=== PATIENT | male | born 1935 | race African-American/Black ===

== ENCOUNTER 2018-01-01 13:26 | Emergency (ER) | payer MEDICARE, OTHER ==
[~2018-01-01] VITALS: Ht 175.3 cm; Wt 85.0 kg
[~2018-01-01 13:26] MED LIST: ASPI-1160 PO; HYDR25TA PO; ROSU40TA PO
[2018-01-01] MEDS ORDERED: ACETAMINOPHEN 325MG TABLET PO ONE (14:45)
[2018-01-01 16:20] LABS: BASOPHILS % 0.9 % (0.0-2.0); EOSINOPHILS % 2.3 % (0.0-5.0); HEMATOCRIT. 40.7 % (42.0-52.0); HEMOGLOBIN. 12.9 g/dL (14.0-18.0); LYMPHOCYTES % 12.4 % (20.0-50.0); MEAN CORPUSCULAR HEMOGLOBIN 28.1 pg (28.0-32.0); MEAN CORPUSCULAR VOLUME 88.5 fL (80.0-94.0); MONOCYTES % 12.9 % (2.0-8.0); NEUTROPHILS % 71.5 % (40.0-76.0); PLATELET 218 x1000/uL (130-400); RED CELL DISTRIBUTION WIDTH 14.8 % (11.6-14.6)
[2018-01-01 16:24] LABS: CHLORIDE 103 mEq/L (98-107)
[2018-01-01 17:51] VITALS: BP 132/68
== END 2018-01-01 17:52 | disposition home or self-care (01) ==
LOC: ER 13:26
DX: L03.115 Cellulitis of right lower limb (principal); I10 Essential (primary) hypertension; J45.909 Unspecified asthma, uncomplicated; Z79.82 Long term (current) use of aspirin
CPT/HCPCS: 36415; 73610; 73630; 84550; 93971; 99284

== ENCOUNTER 2019-02-01 21:20 | Inpatient (IN) | payer MEDICARE, OTHER ==
[~2019-02-01] VITALS: Ht 182.9 cm; Wt 98.0 kg
[2019-02-02] MEDS ORDERED: ASPIRIN 81MG TABLET PO ONE (02:00)
[2019-02-02 02:38] LABS: HEMATOCRIT. 40.5 % (42.0-52.0); HEMOGLOBIN. 13.5 g/dL (14.0-18.0); MEAN CORPUSCULAR HEMOGLOBIN 30.1 pg (28.0-32.0); MEAN CORPUSCULAR VOLUME 90.8 fL (80.0-94.0); MEAN PLATELET VOLUME 9.2 fl (7.4-10.4); PLATELET 169 x1000/uL (130-400); RED BLOOD CELL COUNT 4.46 mill/uL (4.7-6.1); RED CELL DISTRIBUTION WIDTH 15.5 % (11.6-14.6)
[2019-02-02 02:43] LABS: CHLORIDE 109 mEq/L (98-107)
[2019-02-02 04:15] LABS: ATYPICAL LYMPHOCYTES 2; PLATELET ESTIMATE NORMAL
[2019-02-02] MEDS ORDERED: NA PHOS,M-B/NA PHOS,DI-BA ENEMA 118ML PR PRN (09:45)
[2019-02-02] MEDS ORDERED: GUAIFENESIN 200MG/10ML SUGAR FREE UDC PO PRN (09:45)
[2019-02-02] MEDS ORDERED: ONDANSETRON HCL 4MG/2ML INJ IV PRN (09:45)
[2019-02-02] MEDS ORDERED: NITROGLYCERIN 0.4MG TABLET SL SL PRN (09:45)
[2019-02-02] MEDS ORDERED: DOCUSATE SODIUM 100MG CAPSULE PO PRN (09:45)
[2019-02-02] MEDS ORDERED: AMLODIPINE 10MG TABLET PO SCH (09:45)
[2019-02-02] MEDS ORDERED: CLONIDINE 0.1MG TABLET PO PRN (09:45)
[2019-02-02] MEDS ORDERED: LORAZEPAM 0.5MG TABLET PO PRN (09:45)
[2019-02-02] MEDS ORDERED: MAGNESIUM/ALUMINUM HYDROXIDE/SIMETHICONE 30ML UDC PO PRN (09:45)
[2019-02-02] MEDS ORDERED: ACETAMINOPHEN 325MG TABLET PO PRN (09:45)
[2019-02-02] MEDS ORDERED: IPRATROPIUM/ALBUTEROL 0.5-3(2.5)MG/3ML NEB NEB PRN (09:45)
[2019-02-02] MEDS ORDERED: TRAMADOL 50MG TABLET PO PRN (09:45)
[2019-02-02 11:00] VITALS: BP 178/80
[2019-02-02] MEDS ORDERED: REGADENOSON 0.4 MG/5 ML IV NR (11:30)
[2019-02-02] MEDS: ENOXAPARIN 40MG/0.4ML SYR SUBCUT SCH (14:23)
[2019-02-02 15:17] LABS: CREATINE KINASE 57 IU/L (39-308)
[2019-02-02 15:18] LABS: CREATINE KINASE MB FRACTION 1.1 ng/mL (0.5-3.6)
[2019-02-02 20:00] VITALS: BP 149/91
[2019-02-02] MEDS: FAMOTIDINE 20MG TABLET PO SCH (20:59)
[2019-02-02] MEDS: AMLODIPINE 5MG TABLET PO SCH (20:59)
[2019-02-02] MEDS: METOPROLOL TARTRATE 25MG TABLET PO SCH (20:59)
[2019-02-02] MEDS ORDERED: ZOLPIDEM TARTRATE 5MG TABLET PO PRN (21:00)
[2019-02-03] VITALS: BP 137/57
[2019-02-03 04:00] VITALS: BP 141/70
[2019-02-03 06:27] LABS: BASOPHILS % 0.9 % (0.0-2.0); EOSINOPHILS % 2.1 % (0.0-5.0); HEMOGLOBIN. 12.8 g/dL (14.0-18.0); LYMPHOCYTES % 17.9 % (20.0-50.0); MEAN CORPUSCULAR HEMOGLOBIN 29.5 pg (28.0-32.0); MEAN CORPUSCULAR VOLUME 92.2 fL (80.0-94.0); MEAN PLATELET VOLUME 10.4 fl (7.4-10.4); NEUTROPHILS % 67.1 % (40.0-76.0); PLATELET 140 x1000/uL (130-400); RED BLOOD CELL COUNT 4.34 mill/uL (4.7-6.1); RED CELL DISTRIBUTION WIDTH 15.7 % (11.6-14.6)
[2019-02-03 06:32] LABS: CHLORIDE 108 mEq/L (98-107)
[2019-02-03 06:40] LABS: LDL CHOLESTEROL 83 mg/dL (5-100)
[2019-02-03 06:41] LABS: HDL CHOLESTEROL 48 mg/dL (40-59)
[2019-02-03 08:00] VITALS: BP 149/70
[2019-02-03] MEDS ORDERED: ASPIRIN 325MG EC TABLET PO SCH (09:00)
[2019-02-03] MEDS: ENOXAPARIN 40MG/0.4ML SYR SUBCUT SCH (09:36)
[2019-02-03 12:00] VITALS: BP 182/64
[2019-02-03] MEDS ORDERED: REGADENOSON 0.4 MG/5 ML IV ONE (13:12)
[2019-02-03] MEDS: AMLODIPINE 5MG TABLET PO SCH ×2 (15:17→20:53)
[2019-02-03] MEDS: ASPIRIN 81MG EC TABLET PO SCH (15:17)
[2019-02-03] MEDS: FAMOTIDINE 20MG TABLET PO SCH ×2 (15:17→20:52)
[2019-02-03] MEDS: METOPROLOL TARTRATE 25MG TABLET PO SCH ×2 (15:17→20:53)
[2019-02-03 16:00] VITALS: BP 160/67
[2019-02-03] MEDS: CLONIDINE 0.2MG TABLET PO SCH ×3 (18:12→21:51)
[2019-02-03 20:00] VITALS: BP 135/55
[2019-02-03] MEDS ORDERED: ATORVASTATIN CALCIUM 20MG TABLET PO SCH (21:00)
[2019-02-04] VITALS: BP 114/52
[2019-02-04 04:00] VITALS: BP 145/71
[2019-02-04] MEDS: CLONIDINE 0.2MG TABLET PO SCH ×2 (06:00→12:43)
[2019-02-04 08:00] VITALS: BP 138/66
[2019-02-04] MEDS: AMLODIPINE 5MG TABLET PO SCH (09:23)
[2019-02-04] MEDS: ASPIRIN 81MG EC TABLET PO SCH (09:23)
[2019-02-04] MEDS: FAMOTIDINE 20MG TABLET PO SCH (09:23)
[2019-02-04] MEDS: ENOXAPARIN 40MG/0.4ML SYR SUBCUT SCH ×2 (09:25→09:33)
[2019-02-04] MEDS: METOPROLOL TARTRATE 25MG TABLET PO SCH (09:25)
[2019-02-04] MEDS ORDERED: MAGNESIUM OXIDE 400MG TABLET PO NR ×2 (10:00→10:15)
[2019-02-04 12:00] VITALS: BP 162/58
[2019-02-04 12:35] VITALS: BP 135/65
== END 2019-02-04 14:35 | disposition home or self-care (01) | DRG 206 ==
LOC: ER 21:20 → 7WST 02-02 05:14 → EDBEDREQTM 02-02 05:16 → EDBEDREQ 02-02 05:16 → ENRESERV 02-02 08:13
PROVIDERS: ADMIT Internal Medicine; ATTEND Internal Medicine
DX: M94.0 Chondrocostal junction syndrome [Tietze] (principal); E44.1 Mild protein-calorie malnutrition; E11.9 Type 2 diabetes mellitus without complications; E78.5 Hyperlipidemia, unspecified; E83.51 Hypocalcemia; F17.210 Nicotine dependence, cigarettes, uncomplicated; I10 Essential (primary) hypertension; I25.10 Atherosclerotic heart disease of native coronary artery without angina pectoris; J44.9 Chronic obstructive pulmonary disease, unspecified; N40.0 Benign prostatic hyperplasia without lower urinary tract symptoms; D64.9 Anemia, unspecified; E78.00 Pure hypercholesterolemia, unspecified; F12.10 Cannabis abuse, uncomplicated; Z68.29 Body mass index [BMI] 29.0-29.9, adult
CPT/HCPCS: 36415; 71045; 78452; 80053; 80061; 82550; 82553; 83036; 83735; 83880; 84100; 84484; 85025; 93005; 93017; 93306; 93970; 99285; A9500; J1650; J2785

== ENCOUNTER 2021-11-12 12:45 | Inpatient (IN) | payer MEDICARE, OTHER ==
[~2021-11-12] VITALS: Ht 185.4 cm; Wt 85.5 kg
[~2021-11-12 12:45] MED LIST changes: -ASPI-1160 PO; +NITR-87 MT; +OXYB5TAB16 PO
[2021-11-12] MEDS ORDERED: NITROGLYCERIN 0.4MG TABLET SL SL PRN (13:30)
[2021-11-12 13:49] LABS: EOSINOPHILS % 3.4 % (0.0-5.0); HEMATOCRIT. 38.6 % (42.0-52.0); HEMOGLOBIN. 12.5 g/dL (14.0-18.0); MEAN CORPUSCULAR HEMOGLOBIN 28.9 pg (28.0-32.0); MEAN PLATELET VOLUME 9.1 fl (7.4-10.4); MONOCYTES % 9.2 % (2.0-8.0); NEUTROPHILS % 66.4 % (40.0-76.0); PLATELET 198 x1000/uL (130-400); RED BLOOD CELL COUNT 4.34 mill/uL (4.7-6.1); RED CELL DISTRIBUTION WIDTH 16.4 % (11.6-14.6)
[2021-11-12 14:10] LABS: CHLORIDE 104 mEq/L (98-107)
[2021-11-12 15:02] LABS: INR 1.1; PROTHROMBIN TIME 11.4 sec (9.6-11.0)
[2021-11-12] MEDS ORDERED: ACETAMINOPHEN 325MG TABLET PO PRN ×2 (18:45)
[2021-11-12] MEDS ORDERED: GUAIFENESIN 200MG/10ML SUGAR FREE UDC PO PRN (18:45)
[2021-11-12] MEDS ORDERED: DOCUSATE SODIUM 100MG CAPSULE PO PRN (18:45)
[2021-11-12] MEDS ORDERED: MAGNESIUM/ALUMINUM HYDROXIDE/SIMETHICONE 30ML UDC PO PRN (18:45)
[2021-11-12] MEDS ORDERED: HYDROCODONE/ACETAMINOPHEN 5/325MG TABLET PO PRN (18:45)
[2021-11-12] MEDS ORDERED: ONDANSETRON HCL 4MG/2ML INJ IV PRN (18:45)
[2021-11-12] MEDS ORDERED: CLONIDINE 0.1MG TABLET PO PRN (18:45)
[2021-11-12] MEDS ORDERED: NALOXONE HCL 0.4MG/ML VIAL IV PRN (19:15)
[2021-11-12] MEDS ORDERED: IPRATROPIUM/ALBUTEROL 0.5-3(2.5)MG/3ML NEB HHN PRN (19:15)
[2021-11-12] MEDS: FAMOTIDINE 20MG TABLET PO SCH (21:47)
[2021-11-13] VITALS: BP 152/74
[2021-11-13 06:54] LABS: BASOPHILS % 0.7 % (0.0-2.0); EOSINOPHILS % 3.7 % (0.0-5.0); HEMATOCRIT. 39.1 % (42.0-52.0); HEMOGLOBIN. 12.8 g/dL (14.0-18.0); MEAN CORPUSCULAR HEMOGLOBIN 28.7 pg (28.0-32.0); MEAN CORPUSCULAR VOLUME 88.1 fL (80.0-94.0); MEAN PLATELET VOLUME 9.5 fl (7.4-10.4); MONOCYTES % 11.3 % (2.0-8.0); NEUTROPHILS % 62.3 % (40.0-76.0); PLATELET 209 x1000/uL (130-400); RED BLOOD CELL COUNT 4.44 mill/uL (4.7-6.1); RED CELL DISTRIBUTION WIDTH 16.2 % (11.6-14.6)
[2021-11-13 08:00] VITALS: BP 126/69
[2021-11-13] MEDS: ENOXAPARIN 30MG/0.3ML SYR SUBCUT SCH (09:42)
[2021-11-13] MEDS: FAMOTIDINE 20MG TABLET PO SCH ×2 (09:42→21:00)
[2021-11-13] MEDS: ASPIRIN 81MG EC TABLET PO SCH (09:42)
[2021-11-13 09:57] LABS: CHLORIDE 108 mEq/L (98-107)
[2021-11-13 10:04] LABS: HDL CHOLESTEROL 47 mg/dL (40-59); LDL CHOLESTEROL 72 mg/dL (5-100)
[2021-11-13 12:00] VITALS: BP 142/72
[2021-11-13 16:00] VITALS: BP 134/60
[2021-11-13 21:01] VITALS: BP 147/57
[2021-11-14 00:45] VITALS: BP 117/48
[2021-11-14 04:00] VITALS: BP 128/47
[2021-11-14 06:22] LABS: CHLORIDE 107 mEq/L (98-107); HEMATOCRIT 37.8 % (42.0-52.0); HEMOGLOBIN 12.4 g/dL (14.0-18.0); MEAN CORPUSCULAR HEMOGLOBIN 28.9 pg (28.0-32.0); MEAN CORPUSCULAR VOLUME 88.3 fL (80.0-94.0); PLATELET 205 x1000/uL (130-400); RED BLOOD CELL COUNT 4.28 mill/uL (4.7-6.1); RED CELL DISTRIBUTION WIDTH 16.2 % (11.6-14.6)
[2021-11-14] MEDS ORDERED: REGADENOSON 0.4 MG/5 ML IV NR (07:30)
[2021-11-14 08:00] VITALS: BP 130/71
[2021-11-14 12:00] VITALS: BP 125/63
[2021-11-14] MEDS ORDERED: FERROUS SULFATE 325MG TABLET PO SCH (12:15)
[2021-11-14] MEDS: FAMOTIDINE 20MG TABLET PO SCH (12:42)
[2021-11-14] MEDS: ASPIRIN 81MG EC TABLET PO SCH (12:42)
[2021-11-14] MEDS: ENOXAPARIN 30MG/0.3ML SYR SUBCUT SCH (12:43)
[2021-11-14] MEDS ORDERED: ASPI-1406 PO (13:17)
[2021-11-14] MEDS ORDERED: FERR-63 PO (13:17)
[2021-11-14 14:03] LABS: T4 FREE 1.1 ng/dL (0.76-1.46)
[2021-11-14 16:00] VITALS: BP 116/68
[2021-11-14 16:15] VITALS: BP 116/68
== END 2021-11-14 17:15 | disposition home or self-care (01) | DRG 206 ==
LOC: ER 13:27 → 7WST 17:36 → SUPCPDRO 18:34 → ENRESERV 22:24
PROVIDERS: ADMIT Internal Medicine; ATTEND Internal Medicine
PROC: 4A02XM4 Measurement of Cardiac Total Activity, External Approach (ICD-10-PCS; principal; 2021-11-14)
PROC: 3E033HZ Introduction of Radioactive Substance into Peripheral Vein, Percutaneous Approach (ICD-10-PCS; 2021-11-14)
DX: M94.0 Chondrocostal junction syndrome [Tietze] (principal); E44.1 Mild protein-calorie malnutrition; E78.5 Hyperlipidemia, unspecified; D50.9 Iron deficiency anemia, unspecified; E78.00 Pure hypercholesterolemia, unspecified; I10 Essential (primary) hypertension; M16.12 Unilateral primary osteoarthritis, left hip; I44.0 Atrioventricular block, first degree; K44.9 Diaphragmatic hernia without obstruction or gangrene; R73.03 Prediabetes; F17.200 Nicotine dependence, unspecified, uncomplicated; Z90.79 Acquired absence of other genital organ(s); Z68.24 Body mass index [BMI] 24.0-24.9, adult; Z85.46 Personal history of malignant neoplasm of prostate
CPT/HCPCS: 36415; 71045; 78452; 80048; 80053; 80061; 82728; 83036; 83540; 83550; 83880; 84439; 84443; 84484; 85025; 85027; 85379; 93005; 93017; 93306; 93970; 97162; 97166; 99285; A9500; J1650; J2785